=== PATIENT | male | born 1950 | race Caucasian/White ===

== ENCOUNTER 2017-08-07 06:42 | Day surgery (SDC) | payer OTHER ==
[~2017-08-07] VITALS: Ht 190.5 cm; Wt 103.2 kg
[~2017-08-07 06:42] MED LIST: APIX5TAB4 PO; ATOR20TA65 PO; DIGO250T84 PO; FERR-82 PO; FINA5TAB41 PO; FURO20TA4 PO; FURO40TA5 PO; LEVO125T11 PO; LEVO150T11 PO; METF500T6 PO; METO-409 PO; MULT-29 PO; PANT40TA25 PO; PRAS10TA6 PO; RAMIPRIL; SPIR25TA PO
[2017-08-07] MEDS ORDERED: SODIUM CHLORIDE 0.9% 1000ML 1,000 ML IV ONE (06:54)
[2017-08-07 07:09] VITALS: BP 110/63
[2017-08-07] MEDS ORDERED: PROPOFOL 10 MG/ML 20ML VIAL IV ONE ×2 (08:07)
[2017-08-07] MEDS ORDERED: PHENYLEPHRINE HCL 10 MG/ML 1ML VIAL IV ONE (08:11)
[2017-08-07 08:17] VITALS: BP 98/56
[2017-09-16] MEDS ORDERED: LEVO150T11 PO (13:22)
[2017-09-16] MEDS ORDERED: ASPI-555 PO (13:23)
[2017-09-16] MEDS ORDERED: METF500T6 PO (13:34)
== END 2017-08-07 08:50 | disposition home or self-care (01) ==
LOC: DAH 06:42 → ENDO 06:42
PROVIDERS: ATTEND Internal Medicine Gastroenterology
DX: Z08 Encounter for follow-up examination after completed treatment for malignant neoplasm (principal); Z85.038 Personal history of other malignant neoplasm of large intestine; Z86.010 Personal history of colon polyps; I10 Essential (primary) hypertension; I25.10 Atherosclerotic heart disease of native coronary artery without angina pectoris; N40.0 Benign prostatic hyperplasia without lower urinary tract symptoms; I48.91 Unspecified atrial fibrillation; D64.9 Anemia, unspecified; E03.9 Hypothyroidism, unspecified; E78.5 Hyperlipidemia, unspecified; Z95.0 Presence of cardiac pacemaker; Z98.890 Other specified postprocedural states; Z98.84 Bariatric surgery status
CPT/HCPCS: 93005; A4606; G0105; J2370; J2704 ×2; J7030

== ENCOUNTER 2017-09-17 08:19 | Day surgery (SDC) | payer OTHER ==
[~2017-09-17] VITALS: Ht 185.4 cm; Wt 102.9 kg
[~2017-09-17 08:19] MED LIST changes: +ASPI-555 PO; -LEVO125T11 PO; +SODIUM CHLORIDE 0.9% 1000ML 1,000 ML IV ONE
[2017-09-17 08:34] VITALS: BP 101/59
[2017-09-17] MEDS ORDERED: PROPOFOL 10 MG/ML 20ML VIAL IV ONE (09:21)
[2017-09-17] MEDS ORDERED: FENTANYL CITRATE PF 50 MCG/1 ML 2ML VIAL ONE (09:22)
[2017-09-17] MEDS ORDERED: EPHEDRINE SULFATE 50 MG/ML AMPULE ONE (09:34)
[2017-09-17 09:55] VITALS: BP 95/62
== END 2017-09-17 10:40 | disposition home or self-care (01) ==
LOC: SUH 08:19 → DAH 08:19 → SUH 10:40
PROVIDERS: ATTEND Internal Medicine Gastroenterology
DX: Z09 Encounter for follow-up examination after completed treatment for conditions other than malignant neoplasm (principal); D12.2 Benign neoplasm of ascending colon; D12.4 Benign neoplasm of descending colon; D12.3 Benign neoplasm of transverse colon; K63.89 Other specified diseases of intestine; K27.9 Peptic ulcer, site unspecified, unspecified as acute or chronic, without hemorrhage or perforation; I10 Essential (primary) hypertension; I25.10 Atherosclerotic heart disease of native coronary artery without angina pectoris; N40.0 Benign prostatic hyperplasia without lower urinary tract symptoms; D64.89 Other specified anemias; I48.91 Unspecified atrial fibrillation; E03.8 Other specified hypothyroidism; E78.5 Hyperlipidemia, unspecified; Z95.0 Presence of cardiac pacemaker; Z98.890 Other specified postprocedural states; Z86.010 Personal history of colon polyps; Z79.899 Other long term (current) drug therapy; Z98.84 Bariatric surgery status; Z80.0 Family history of malignant neoplasm of digestive organs; Z88.7 Allergy status to serum and vaccine
CPT/HCPCS: 45380; 88305; 93005; A4606; J2704; J3010; J3490; J7030